=== PATIENT | male | born 1965 | race Two or more races ===

== ENCOUNTER 2018-01-20 08:00 | Outpatient (CLI) | payer MEDICARE, OTHER ==
[2018-01-20] MEDS ORDERED: GADOBUTROL 10 MMOL/10 ML PFS ONE ×2 (11:51→15:27)
[2018-01-20] MEDS ORDERED: ALPRazolam 1MG TABLET ONE (14:58)
== END 2018-01-20 17:00 | disposition home or self-care (01) ==
LOC: RAD 08:00
PROVIDERS: ATTEND Registered Nurse
DX: G43.711 Chronic migraine without aura, intractable, with status migrainosus (principal)
CPT/HCPCS: 70553; A9585